=== PATIENT | female | born 1950 | race Two or more races ===

== ENCOUNTER 2024-02-20 16:02 | Emergency (ER) | payer BC, MEDICAID ==
[~2024-02-20] VITALS: Ht 165.1 cm; Wt 80.0 kg
[~2024-02-20 16:02] MED LIST: LORA0.5T2 PO; LORA10TA7 PO; LOSA25TA26 PO; LOVA20TA2 PO; METF-414 PO; TEMA15CA PO
[2024-02-20 16:12] VITALS: BP 140/98; PULSE 74; RESP 16; TEMP 98.5; O2SAT 99
[2024-02-20] MEDS ORDERED: ACETAMINOPHEN 325MG TABLET PO STA (17:31)
[2024-02-20] MEDS: ACETAMINOPHEN 325MG TABLET PO NR (19:34)
== END 2024-02-20 19:35 | disposition home or self-care (01) ==
LOC: ER 16:02
DX: S00.03XA Contusion of scalp, initial encounter (principal); R60.0 Localized edema; E11.9 Type 2 diabetes mellitus without complications; E78.00 Pure hypercholesterolemia, unspecified; F32.A Depression, unspecified; I10 Essential (primary) hypertension; W18.39XA Other fall on same level, initial encounter; Y93.89 Activity, other specified; Y92.89 Other specified places as the place of occurrence of the external cause; Y99.8 Other external cause status
CPT/HCPCS: 99284